=== PATIENT | male | born 1965 | race Two or more races ===

== ENCOUNTER 2016-12-12 15:58 | Emergency (ER) | payer OTHER ==
[2016-12-12] MEDS ORDERED: DIAZEPAM 5 MG TAB PO ONE (16:03)
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
[2016-12-12 16:10] VITALS: RESP 16
[2016-12-12] MEDS ORDERED: DIAZEPAM 5 MG PREPACK#4 BTL TAKEHOME ONE (17:01)
[2016-12-12 18:09] VITALS: BP 128/76; PULSE 80; TEMP 97.7; O2SAT 95
== END 2016-12-12 18:09 | disposition home or self-care (01) ==
DX: S16.1XXA Strain of muscle, fascia and tendon at neck level, initial encounter (principal); V89.2XXA Person injured in unspecified motor-vehicle accident, traffic, initial encounter; Y92.410 Unspecified street and highway as the place of occurrence of the external cause